=== PATIENT | female | born 1940 | race Caucasian/White ===

== ENCOUNTER 2017-01-23 23:57 | Emergency (ER) | payer MEDICARE, BC ==
[~2017-01-23] VITALS: Ht 162.6 cm; Wt 60.3 kg
[2017-01-24 00:03] VITALS: BP 190/89
--- NOTE | 2017-01-24 00:12 | PHYS DOC ---
Past Medical History Past Medical History: Hypertension, Other Additional Past Medical Histor: blind in the right eye Additional Past Surgical Histo: left eye removal Adult General Chief Complaint Chief Complaint: LACERATION/AVULSION [facility] HPI Patient is a 76 year old male presents to emergency department stating that she dropped a glass container in which she was using to cook with tonight and it broke cutting her in the inner part of her left ankle. She is able to ambulate without difficulty. No bleeding noted at the site at the current time. She states that her last tetanus immunization occurred in August 2016. Patient does state she has a history of high blood pressure. She did take her Benicar tonight. She denies any chest pain or any shortness of air. Review of Systems Review of Systems Constitutional: Denies fever or chills [] Eyes: Denies change in visual acuity, redness, or eye pain [] HENT: Denies nasal congestion or sore throat [] Respiratory: Denies cough or shortness of breath [] Cardiovascular: No additional information not addressed in HPI [] GI: Denies abdominal pain, nausea, vomiting, bloody stools or diarrhea [] : Denies dysuria or hematuria [] Musculoskeletal: Denies back pain or joint pain [] Integument: Denies rash or skin lesions. Laceration to left inner ankle Neurologic: Denies headache, focal weakness or sensory changes [] Current Medications Current Medications Current Medications Medications (Trade) Dose Ordered Sig/Sahra Start Time Stop Time Status Last Admin Dose Admin Lidocaine/Sodium Bicarbonate (Buffered Lidocaine 1%) 20 ml 1X ONCE 01/24/17 00:30 01/24/17 00:31 DC 01/24/17 00:20 20 ML Allergies Allergies Allergies Coded Allergies Type Severity Reaction Last Updated Verified Penicillins Allergy Intermediate 01/24/17 Yes Sulfa (Sulfonamide Antibiotics) Allergy Intermediate 01/24/17 Yes codeine Allergy Intermediate 01/24/17 Yes meperidine Allergy Intermediate 01/24/17 Yes morphine Allergy Intermediate 01/24/17 Yes Physical Exam Physical Exam Constitutional: Well developed, well nourished, no acute distress, non-toxic appearance. [] HENT: Normocephalic, atraumatic, bilateral external ears normal, oropharynx moist, no oral exudates, nose normal. [] Eyes: PERRLA, EOMI, conjunctiva normal, no discharge. [] Neck: Normal range of motion, no tenderness, supple, no stridor. [] Cardiovascular:Heart rate regular rhythm Lungs & Thorax: no respiratory distress Skin: Warm, dry, no erythema, no rash. Laceration 1.5 cm to the left inner ankle. Bleeding is currently controlled. Peripheral pulses 2+ cap refill brisk less than 2 seconds. Extremities: No tenderness, no cyanosis, no clubbing, ROM intact, no edema. [] Neurologic: Alert and oriented X 3, normal motor function, normal sensory function, no focal deficits noted. [] Psychologic: Affect normal, judgement normal, mood normal. [] Current Patient Data Vital Signs Vital Signs Date Time Temp Pulse Resp B/P Pulse Ox O2 Delivery O2 Flow Rate FiO2 01/24/17 00:40 170/92 01/24/17 00:03 97.7 91 16 100 Room Air 97.7 EKG EKG [] Radiology/Procedures Radiology/Procedures [] Course & Med Decision Making Course & Med Decision Making Pertinent Labs and Imaging studies reviewed. (See chart for details) Laceration was noted to have no foreign body per manual inspection. Patient was provided with discharge instructions to keep the area clean and dry. Clean the site with soap and water and apply antibiotic ointment twice a day. Watch for signs and symptoms of infection, redness warmth tenderness or any yellow/ greenish drainage of a come from the site if this should occur follow-up to primary care physician immediately. Sutures out in 7-10 days. Tylenol or ibuprofen for pain and discomfort. Ice packs may also help for pain and discomfort as well. Patient was provided with signs and symptoms to return back to emergency department. Patient will be discharged home in stable condition. [] Dragon Disclaimer Dragon Disclaimer This electronic medical record was generated, in whole or in part, using a voice recognition dictation system. Departure Departure Impression: Primary Impression: Laceration of left ankle Disposition: HOME, SELF-CARE Condition: STABLE Patient Instructions: Laceration Care, Adult, [id number], Sutured Wound Care , [id number] Additional Instructions: Activity as tolerated. Tylenol or ibuprofen for pain and discomfort. Ice packs on 20 minutes off 20 minutes several times a day. Keep the area clean and dry. Clean the site twice daily with soap and water and apply antibiotic ointment to the area. Watch for signs and symptoms of infection: Redness, warmth, tenderness or any yellow/greenish drainage of a come from the site. If this should occur follow- up through primary care physician immediately. Follow-up with your primary care physician in the next 7-10 days for suture removal. Return back to emergency department for signs and symptoms of become worse. Laceration/Wound Repair Laceration/Wound Repair : Wound Location: lower extremity Wound's Depth, Shape: superficial Wound Length (cm): 1 Wound Explored: no foreign body removed Irrigated w/ Saline (ccs): 100 Betadine Prep?: Yes Anesthesia: 1% Lidocaine Volume Anesthetic (ccs): 3 Wound Debrided: minimal Wound Repaired With: sutures Suture Size/Type: 4:0, nylon Number of Sutures: 4 Progress Site was cleaned with Betadine. Site was injected with 3 mL of 1% lidocaine buffered. Irrigated with normal saline approximately 100 mL. 4 interrupted sutures placed. Dressing applied by nursing staff. DOMENICO BAZZI APRN Jan 24, 2017 00:12
[2017-01-24] MEDS ORDERED: LIDOCAINE 1% / SOD BICARB 8.4% 20 ML VIAL. IJ ONE (00:30)
== END 2017-01-24 00:53 | disposition home or self-care (01) ==
LOC: ER 23:57
DX: S91.012A Laceration without foreign body, left ankle, initial encounter (principal); I10 Essential (primary) hypertension; Z88.0 Allergy status to penicillin; Z88.2 Allergy status to sulfonamides; Z88.5 Allergy status to narcotic agent; Z88.6 Allergy status to analgesic agent; W18.02XA Striking against glass with subsequent fall, initial encounter; Y93.G3 Activity, cooking and baking; Y99.8 Other external cause status; Y92.89 Other specified places as the place of occurrence of the external cause
CPT/HCPCS: 12001; 99283-25